=== PATIENT | male | born 1995 | race Caucasian/White ===

== ENCOUNTER 2018-11-30 16:12 | Emergency (ER) | payer SELFPAY ==
[~2018-11-30] VITALS: Ht 177.8 cm; Wt 88.6 kg
[2018-11-30 16:15] VITALS: Ht 177.8 cm; Wt 88.6 kg
[2018-11-30] MEDS ORDERED: TORADOL10 MG PO (17:39)
[2018-11-30 19:11] VITALS: BP 125/74
== END 2018-11-30 19:11 | disposition home or self-care (01) ==
LOC: D.ER 16:12
DX: M54.2 Cervicalgia (principal); R51 Headache; V89.2XXA Person injured in unspecified motor-vehicle accident, traffic, initial encounter